=== PATIENT | male | born 1940 | race Caucasian/White ===

== ENCOUNTER 2018-08-23 05:30 | Day surgery (SDC) | payer OTHER ==
[~2018-08-23] VITALS: Ht 175.3 cm; Wt 70.6 kg
[~2018-08-23 05:30] MED LIST: ASPI-555 PO; LISI-613 PO; SIMV40TA5 PO
[2018-08-23] MEDS ORDERED: SODIUM CHLORIDE 0.9% 1000ML 1,000 ML IV ONE (05:46)
[2018-08-23 05:58] VITALS: BP 149/80
[2018-08-23] MEDS ORDERED: PROPOFOL 10 MG/ML 20ML VIAL IV ONE (07:28)
[2018-08-23 08:03] VITALS: BP 107/68
[2018-08-23 08:07] VITALS: BP 125/71
[2018-08-23 08:12] VITALS: BP 129/75
[2018-08-23 08:17] VITALS: BP 134/79
== END 2018-08-23 08:31 | disposition home or self-care (01) ==
LOC: ENDO 05:30 → DAH 05:30 → ENDO 08:31
PROVIDERS: ATTEND Internal Medicine Gastroenterology
DX: K62.0 Anal polyp (principal); K63.5 Polyp of colon; K44.9 Diaphragmatic hernia without obstruction or gangrene; K57.30 Diverticulosis of large intestine without perforation or abscess without bleeding; K64.0 First degree hemorrhoids; K29.50 Unspecified chronic gastritis without bleeding; B96.81 Helicobacter pylori [H. pylori] as the cause of diseases classified elsewhere; I11.0 Hypertensive heart disease with heart failure; I21.3 ST elevation (STEMI) myocardial infarction of unspecified site; Z95.5 Presence of coronary angioplasty implant and graft; Z98.49 Cataract extraction status, unspecified eye; Z79.899 Other long term (current) drug therapy; I50.20 Unspecified systolic (congestive) heart failure; I25.10 Atherosclerotic heart disease of native coronary artery without angina pectoris; E78.5 Hyperlipidemia, unspecified
CPT/HCPCS: 43239; 45380; 45385; 88305; 93005; A4606; J2704; J7030

== ENCOUNTER 2018-09-14 05:30 | Day surgery (SDC) | payer OTHER ==
[~2018-09-14] VITALS: Ht 177.8 cm; Wt 65.0 kg
[2018-09-14] MEDS ORDERED: SODIUM CHLORIDE 0.9% 1000ML 1,000 ML IV ONE (05:45)
[2018-09-14 05:48] VITALS: BP 102/68
[2018-09-14] MEDS ORDERED: BISA5TAB12 PO (06:27)
[2018-09-14] MEDS ORDERED: ESOM40CA54 PO (06:27)
[2018-09-14] MEDS ORDERED: AMOX500T2 PO (06:27)
[2018-09-14] MEDS ORDERED: PROPOFOL 10 MG/ML 20ML VIAL IV ONE (06:34)
[2018-09-14 07:02] VITALS: BP 97/65
[2018-09-14 07:07] VITALS: BP 98/65
[2018-09-14 07:12] VITALS: BP 110/66
[2018-09-14] MEDS ORDERED: LEVOFLOXACIN 500 MG/D5W 100 ML 100 ML IV SCH (07:15)
[2018-09-14 07:30] VITALS: BP 111/77
[2018-09-14 07:56] VITALS: BP 108/77
== END 2018-09-14 07:59 | disposition home or self-care (01) ==
LOC: DAH 05:30 → ENDO 05:30
PROVIDERS: ATTEND Internal Medicine
DX: K86.2 Cyst of pancreas (principal); K31.89 Other diseases of stomach and duodenum; I11.0 Hypertensive heart disease with heart failure; I50.9 Heart failure, unspecified; I21.3 ST elevation (STEMI) myocardial infarction of unspecified site; Z79.899 Other long term (current) drug therapy; Z95.5 Presence of coronary angioplasty implant and graft; Z98.49 Cataract extraction status, unspecified eye; B96.81 Helicobacter pylori [H. pylori] as the cause of diseases classified elsewhere; K29.50 Unspecified chronic gastritis without bleeding; R93.3 Abnormal findings on diagnostic imaging of other parts of digestive tract; K29.70 Gastritis, unspecified, without bleeding; K44.9 Diaphragmatic hernia without obstruction or gangrene; D12.6 Benign neoplasm of colon, unspecified; K57.30 Diverticulosis of large intestine without perforation or abscess without bleeding; K64.0 First degree hemorrhoids; R94.31 Abnormal electrocardiogram [ECG] [EKG]; D12.9 Benign neoplasm of anus and anal canal; N40.0 Benign prostatic hyperplasia without lower urinary tract symptoms; Z79.01 Long term (current) use of anticoagulants; R10.84 Generalized abdominal pain
CPT/HCPCS: 36415; 43238; 82378; A4215; A4606; J1956; J2704; J7030; 43232

== ENCOUNTER 2018-10-05 07:53 | Day surgery (SDC) | payer OTHER ==
[2018-10-02 11:01] VITALS: BP 134/70
[2018-10-02 11:09] LABS: BASOPHILS % (AUTO) 0.5 % (0.0-5.0); EOSINOPHILS % (AUTO) 7.5 % (0.0-8.0); HEMATOCRIT 40.2 % (42-54); LYMPHOCYTES % (AUTO) 16.5 % (21.0-51.0); MEAN CORPUSCULAR HEMOGLOBIN 32.2 pg (27.0-33.0); MEAN CORPUSCULAR HGB CONC 33.5 g/dL (32.0-36.0); MONOCYTES % (AUTO) 13.7 % (3.0-13.0); NEUTROPHILS % (AUTO) 61.8 % (40.0-77.0); NUCLEATED RED BLOOD CELLS 0.1 % (0.0-0.19); PLATELET COUNT (AUTO) 235 K/uL (130-400); RED BLOOD CELL COUNT(AUTO) 4.19 MIL/uL (4.50-6.20); RED CELL DISTRIBUTION WIDTH 13.6 % (11.0-15.5); WHITE BLOOD COUNT (AUTO) 6.2 K/uL (4.8-10.8)
[2018-10-02 11:12] LABS: CREATININE 1.1 mg/dL (0.5-1.5)
[2018-10-02 11:35] LABS: APPEARANCE,URINE Cloudy (CLEAR); BILIRUBIN,URINE Negative (NEGATIVE); COLOR,URINE Yellow (YELLOW); GLUCOSE, URINE (UA) Negative (NEGATIVE); KETONES,URINE Trace mg/dL (NEGATIVE); LEUKOCYTE ESTERASE ,URINE Small (NEGATIVE); NITRATE,URINE Negative (NEGATIVE); OCCULT BLOOD,URINE Large (NEGATIVE); PROTEIN,URINE 300 (NEGATIVE)
[2018-10-02 11:37] LABS: INR 1.02 (0.85-1.15); PROTHROMBIN TIME 10.7 SEC (9.6-11.6)
[2018-10-02 11:50] LABS: RBC,URINE TNTC /HPF (0-1)
[2018-10-02 11:51] LABS: BACTERIA,URINE Few /HPF (None Seen); SQUAMOUS EPITHELIAL CELL,UR Rare /HPF (0-2)
--- NOTE | 2018-10-04 14:08 | NUR ---
UA UA AND URINE CULTURE FAXED TO [facility]/ DR CAMARILLO ASST.
[2018-10-05] VITALS (18 sets, daily range): BP systolic 144–179; BP diastolic 78–91
[~2018-10-05] VITALS: Ht 179.1 cm; Wt 66.0 kg
[~2018-10-05 07:53] MED LIST changes: +BISA5TAB12 PO; +BROM3DRO OP
[2018-10-05] MEDS ORDERED: LACTATED RINGERS 1000ML 1,000 ML IV ONE (08:24)
[2018-10-05] MEDS: GENTAMICIN SULFATE IV SCH ×2 (08:30→09:14)
[2018-10-05] MEDS: SODIUM CHLORIDE 0.9% IV SCH ×2 (08:30→09:14)
[2018-10-05] MEDS: CEFTRIAXONE SODIUM 1 GM IVP SCH ×2 (08:30→10:22)
[2018-10-05] MEDS ORDERED: LEVO500T89 PO (08:51)
[2018-10-05] MEDS ORDERED: PROPOFOL 10 MG/ML 20ML VIAL IV ONE (10:05)
[2018-10-05] MEDS ORDERED: LIDOCAINE PF 2% 5ML ABBOJECT ONE (10:05)
[2018-10-05] MEDS ORDERED: DEXAMETHASONE SOD PHOSPHATE 10MG/ML 1ML VIAL ONE (10:05)
[2018-10-05] MEDS ORDERED: MIDAZOLAM HCL 1 MG/ML 2ML VIAL ONE (10:06)
[2018-10-05] MEDS ORDERED: ONDANSETRON HCL 4 MG/2 ML VIAL ONE ×2 (10:15→10:26)
[2018-10-05] MEDS ORDERED: FENTANYL CITRATE PF 50 MCG/1 ML 2ML VIAL ONE ×2 (10:26→11:07)
== END 2018-10-05 14:23 | disposition home or self-care (01) ==
LOC: DAH 07:53
PROVIDERS: ATTEND Urology
DX: N40.1 Benign prostatic hyperplasia with lower urinary tract symptoms (principal); R33.8 Other retention of urine; I25.10 Atherosclerotic heart disease of native coronary artery without angina pectoris; Z98.890 Other specified postprocedural states; I10 Essential (primary) hypertension; Z79.899 Other long term (current) drug therapy
CPT/HCPCS: 36415; 52648; 71045; 80048; 81001; 85025; 85610; 87088; 93005; A4218; A4354; A4358; A4600; C1758; J0696; J1100; J1580; J2001; J2250; J2405; J2704; J3010 ×2; J7030; J7120

== ENCOUNTER 2018-10-26 02:40 | Emergency (ER) | payer OTHER ==
[~2018-10-26 02:40] MED LIST changes: +LEVO500T89 PO
[2018-10-26] MEDS ORDERED: SODIUM CHLORIDE 0.9% 500ML 500 ML IV ONE (03:29)
[2018-10-26 03:59] LABS: BASOPHILS % (AUTO) 0.7 % (0.0-5.0); EOSINOPHILS % (AUTO) 6.4 % (0.0-8.0); HEMATOCRIT 36.9 % (42-54); LYMPHOCYTES % (AUTO) 13.8 % (21.0-51.0); MEAN CORPUSCULAR HEMOGLOBIN 32.2 pg (27.0-33.0); MEAN CORPUSCULAR HGB CONC 33.8 g/dL (32.0-36.0); MEAN CORPUSCULAR VOLUME 95.2 fL (79-99); NEUTROPHILS % (AUTO) 69.1 % (40.0-77.0); PLATELET COUNT (AUTO) 340 K/uL (130-400); RED BLOOD CELL COUNT(AUTO) 3.87 MIL/uL (4.50-6.20); RED CELL DISTRIBUTION WIDTH 13.3 % (11.0-15.5); WHITE BLOOD COUNT (AUTO) 9.6 K/uL (4.8-10.8)
[2018-10-26 04:07] LABS: INR 1.02 (0.85-1.15); PARTIAL THROMBOPLASTIN TIME 27.6 SEC (26.3-35.5); PROTHROMBIN TIME 10.7 SEC (9.6-11.6)
[2018-10-26 04:08] LABS: BILIRUBIN,URINE Small (NEGATIVE); GLUCOSE, URINE (UA) Negative (NEGATIVE); KETONES,URINE Negative (NEGATIVE); LEUKOCYTE ESTERASE ,URINE Large (NEGATIVE); NITRATE,URINE Positive (NEGATIVE); OCCULT BLOOD,URINE Moderate (NEGATIVE); PROTEIN,URINE POS 2+ (NEGATIVE); UROBILINOGEN,URINE 0.2 mg/dL (0.2-1.0)
[2018-10-26 04:10] LABS: APPEARANCE,URINE TURBID (CLEAR)
[2018-10-26 04:11] LABS: CREATININE 1.2 mg/dL (0.5-1.5); POTASSIUM 4.7 mmol/L (3.5-5.1)
[2018-10-26 04:12] LABS: COLOR,URINE Red (YELLOW)
[2018-10-26 04:15] LABS: ALBUMIN 2.9 g/dL (3.5-5.0); BILIRUBIN,TOTAL 0.3 mg/dL (0.2-1.0); TOTAL PROTEIN, SERUM 6.7 g/dL (6.0-8.3)
[2018-10-26 04:18] LABS: BACTERIA,URINE Rare /HPF (None Seen); RBC,URINE TNTC /HPF (0-1); SQUAMOUS EPITHELIAL CELL,UR Rare /HPF (0-2); WBC,URINE >100 /HPF (0-1)
== END 2018-10-26 05:29 | disposition home or self-care (01) ==
LOC: EDH 02:40
DX: T83.83XA Hemorrhage due to genitourinary prosthetic devices, implants and grafts, initial encounter (principal); I25.10 Atherosclerotic heart disease of native coronary artery without angina pectoris; Y84.8 Other medical procedures as the cause of abnormal reaction of the patient, or of later complication, without mention of misadventure at the time of the procedure; Y92.89 Other specified places as the place of occurrence of the external cause
CPT/HCPCS: 36415; 80053; 81001; 82270; 83690; 85025; 85610; 85730; 99284; J7040